=== PATIENT | female | born 1985 | race Caucasian/White ===

== ENCOUNTER 2020-05-19 22:53 | Emergency (ER) | payer BC, OTHER ==
[~2020-05-19] VITALS: Ht 162.6 cm; Wt 108.8 kg
[~2020-05-19 22:53] MED LIST: DOCU240C31 PO; IBUP-1222 PO; OXYC1TAB12 PO
[2020-05-19 23:24] LABS: HCG UR SG 1.025 (1.003-1.030)
[2020-05-19 23:25] LABS: MICROSCOPIC AUTO
[2020-05-19] MEDS ORDERED: ONDANSETRON 2MG/ML, 2ML ONE (23:29)
[2020-05-19] MEDS ORDERED: MORPHINE SULFATE 4 MG/ML, 1ML ONE (23:29)
[2020-05-19] MEDS ORDERED: SODIUM CHLORIDE 0.9% 1,000ML IVBOLUS ONE (23:30)
[2020-05-19] MEDS ORDERED: ONDANSETRON 2MG/ML, 2ML IVPush ONE (23:30)
[2020-05-19] MEDS ORDERED: SODIUM CHLORIDE FLUSH 10ML SYR IVF ONE (23:30)
[2020-05-19 23:51] LABS: BASOPHILS % (AUTO) 1 % (0-1); EOSINOPHILS % (AUTO) 2 % (1-7); LYMPHOCYTES % (AUTO) 13 % (22-44); MEAN CORPUSCULAR HEMOGLOBIN 26.4 pg (27.0-34.8); MEAN PLATELET VOLUME 8.5 fL (7.4-10.4); MONOCYTES % (AUTO) 6 % (2-9); NEUTROPHILS % (AUTO) 79 % (42-75); PLATELET COUNT 202 x10^3/uL (130-400); RED BLOOD COUNT 5.17 x10^6/uL (3.82-5.3); RED CELL DISTRIBUTION WIDTH 14.5 % (9.6-15.2)
[2020-05-19] MEDS: MORPHINE SULFATE 4 MG/ML, 1ML IVPush PRN (23:51)
[2020-05-20 00:01] LABS: ALANINE AMINOTRANSFERASE 36 U/L (12-78); ALBUMIN 3.2 g/dL (3.4-5.0); ANION GAP 5 mmol/L (5-15); CALCIUM 8.7 mg/dL (8.5-10.1); CHLORIDE 105 mmol/L (98-107); CREATININE 0.76 mg/dL (0.55-1.02)
[2020-05-20 00:05] LABS: ALKALINE PHOSPHATASE 105 U/L (45-117); BILIRUBIN,TOTAL 0.2 mg/dL (0.2-1.0); TOTAL PROTEIN 7.4 g/dL (6.4-8.2)
[2020-05-20] MEDS ORDERED: MORPHINE SULFATE 4 MG/ML, 1ML ONE ×2 (00:32→02:28)
[2020-05-20] MEDS: MORPHINE SULFATE 4 MG/ML, 1ML IVPush PRN (00:34)
--- NOTE | 2020-05-20 00:36 | NUR ---
[facility] vigil in [facility] - 05/20/20 at 0036 by HUSSAIN task rn: pt requesting more pain meds. pt medicated for pain per emanettie
--- NOTE | 2020-05-20 00:36 | NUR ---
task rn: pt requesting more pain meds. pt medicated for pain per emar
[2020-05-20] MEDS ORDERED: OMNIPAQUE 350 MG/ML, 100ML BOTTLE ONE (01:00)
--- NOTE | 2020-05-20 01:12 | NUR ---
pt back from ct scan
[2020-05-20] MEDS ORDERED: MAALOX/HYOSCYAMINE/LIDOCAINE 45 ML BTL PO ONE (02:00)
[2020-05-20] MEDS ORDERED: MAALOX/HYOSCYAMINE/LIDOCAINE 45 ML BTL ONE (02:03)
[2020-05-20] MEDS ORDERED: METOCLOPRAMIDE 5 MG/ML, 2ML ONE (02:29)
[2020-05-20] MEDS ORDERED: METOCLOPRAMIDE 5 MG/ML, 2ML IVPush ONE (02:30)
[2020-05-20] MEDS ORDERED: MORPHINE SULFATE 4 MG/ML, 1ML IVPush ONE (03:00)
--- NOTE | 2020-05-20 03:35 | NUR ---
pt desating when falling asleep, pt placed on 2l nc and will mtf before going home
[2020-05-20 04:17] VITALS: BP 124/60
--- NOTE | 2020-05-20 04:18 | NUR ---
pt tolerating room air well, pt wide awake, states feeling much better. pt's to drive home
== END 2020-05-20 04:38 | disposition home or self-care (01) ==
LOC: ED 23:23
DX: K29.00 Acute gastritis without bleeding (principal); R10.84 Generalized abdominal pain; R11.2 Nausea with vomiting, unspecified; M54.5 Low back pain
CPT/HCPCS: 36415; 74177; 80053; 81001; 81025; 83690; 84703; 85025; 96361; 96374; 96375; 96376; 99285; J2270; J2405; J2765; J7030; Q9967